=== PATIENT | male | born 1945 | race Hispanic/Latino ===

== ENCOUNTER 2023-05-19 17:48 | Inpatient (IN) | payer MEDICARE ==
[~2023-05-19] VITALS: Ht 185.4 cm; Wt 77.7 kg
[2023-05-19] MEDS ORDERED: ALBUTEROL/IPRATROPIUM 3 ML NEB NEB ONE ×2 (18:15→21:45)
[2023-05-19] MEDS ORDERED: SODIUM CHLORIDE 0.9% 1000ML 1,000 ML IV SCH (18:15)
[2023-05-19 18:43] LABS: BASOPHILS % 0.4 % (0.0-1.0); EOSINOPHILS % 0.2 % (0.0-6.0); HEMATOCRIT 33.9 % (38.2-49.6); HEMOGLOBIN 10.5 g/dL (14.0-18.0); LYMPHOCYTES # (AUTO) 0.8 (1.0-3.2); LYMPHOCYTES % 8.8 % (18.0-39.1); MEAN CORPUSCULAR HEMOGLOBIN 24.5 pg (28-32); MEAN CORPUSCULAR VOLUME 79.2 fL (81-99); MONOCYTES # (AUTO) 0.8 (0.2-0.8); MONOCYTES % 8.8 % (4.4-11.3); NEUTROPHILS # (AUTO) 6.9 (2.1-6.9); NEUTROPHILS % 81.3 % (38.7-80.0); PLATELET COUNT 166 x10e3/uL (140-360); RED BLOOD COUNT 4.28 x10e6/uL (4.3-5.7); RED CELL DISTRIBUTION WIDTH 21.1 % (11.7-14.4); WHITE BLOOD COUNT 8.52 x10e3/uL (4.8-10.8)
[2023-05-19 18:55] LABS: ALBUMIN 3.7 g/dL (3.5-5.0); ANION GAP 15.8 mmol/L (8-16); BILIRUBIN,TOTAL 1.2 mg/dL (0.2-1.2); CALCIUM 8.7 mg/dL (8.4-10.2); CREATININE, SERUM 1.48 mg/dL (0.72-1.25); POTASSIUM 3.8 mmol/L (3.5-5.1); TOTAL PROTEIN 7.5 g/dL (6.5-8.1)
[2023-05-19 19:01] LABS: TROPONIN I 0.043 ng/mL (0-0.300)
[2023-05-19 19:31] VITALS: PULSE 74; RESP 20; O2SAT 97
[2023-05-19] MEDS ORDERED: ONDANSETRON HCL INJ 2MG/ML 2ML 2 MG/ML VIAL IV PRN (21:45)
[2023-05-19] MEDS ORDERED: Morphine 4mg INJECTION 4 MG/ML INJ IV PRN (21:45)
[2023-05-20] VITALS (12 sets, daily range): BP systolic 94–105; BP diastolic 48–65; PULSE 71–86; RESP 16–20; TEMP 98–99.5; O2SAT 90–97
[2023-05-20] MEDS: ALBUTEROL/IPRATROPIUM 3 ML NEB NEB SCH ×6 (03:49→22:57)
[2023-05-20 05:56] LABS: BASOPHILS % 0.3 % (0.0-1.0); EOSINOPHILS % 0.3 % (0.0-6.0); HEMATOCRIT 30.6 % (38.2-49.6); HEMOGLOBIN 9.8 g/dL (14.0-18.0); LYMPHOCYTES # (AUTO) 0.7 (1.0-3.2); LYMPHOCYTES % 9.3 % (18.0-39.1); MEAN CORPUSCULAR HEMOGLOBIN 24.7 pg (28-32); MEAN CORPUSCULAR VOLUME 77.1 fL (81-99); MONOCYTES # (AUTO) 0.7 (0.2-0.8); MONOCYTES % 9.4 % (4.4-11.3); NEUTROPHILS # (AUTO) 5.9 (2.1-6.9); NEUTROPHILS % 80.6 % (38.7-80.0); PLATELET COUNT 173 x10e3/uL (140-360); RED BLOOD COUNT 3.97 x10e6/uL (4.3-5.7); RED CELL DISTRIBUTION WIDTH 20.7 % (11.7-14.4); WHITE BLOOD COUNT 7.33 x10e3/uL (4.8-10.8)
[2023-05-20 06:36] LABS: ALBUMIN 3.3 g/dL (3.5-5.0); ALBUMIN/GLOBULIN RATIO 0.9 (0.8-2.0); ANION GAP 14.3 mmol/L (8-16); BILIRUBIN,TOTAL 1.4 mg/dL (0.2-1.2); CALCIUM 8.2 mg/dL (8.4-10.2); CREATININE, SERUM 1.13 mg/dL (0.72-1.25); TOTAL PROTEIN 6.9 g/dL (6.5-8.1)
[2023-05-20] MEDS ORDERED: FUROSEMIDE40 MG PO (06:46)
[2023-05-20] MEDS ORDERED: ATORVASTATIN CA20 MG PO (06:46)
[2023-05-20] MEDS ORDERED: AMIODARONE HCL100 MG PO (06:46)
[2023-05-20] MEDS ORDERED: JARDIANCE10 MG PO (06:46)
[2023-05-20] MEDS ORDERED: ELIQUIS2.5 MG PO (06:46)
[2023-05-20 06:52] LABS: POTASSIUM 3.3 mmol/L (3.5-5.1)
[2023-05-20] MEDS ORDERED: SPIRONOLACTONE25 MG PO (06:55)
[2023-05-20] MEDS ORDERED: LEVOTHYROXINE88 MCG PO (06:55)
[2023-05-20] MEDS ORDERED: METFORMIN HCL850 MG PO (06:55)
[2023-05-20] MEDS ORDERED: FLOMAX0.4 MG PO (06:55)
[2023-05-20] MEDS ORDERED: D3-5000125 MCG PO (06:55)
[2023-05-20] MEDS ORDERED: METOLAZONE5 MG PO (06:55)
[2023-05-20] MEDS ORDERED: CLOPIDOGREL75 MG PO (06:55)
[2023-05-20 06:59] LABS: TROPONIN I 0.035 ng/mL (0-0.300)
[2023-05-20] MEDS ORDERED: GUAIFENESIN/DEXTROMETHORPHAN LIQD 5 ML UDC NG PRN (09:30)
[2023-05-20 10:04] LABS: CHOL/HDL RATIO 3.2 (3.9-4.7)
[2023-05-20] MEDS ORDERED: POTASSIUM CHLORIDE 20 MEQ TAB CR PO ONE ×3 (12:15→22:15)
[2023-05-20] MEDS ORDERED: FUROSEMIDE INJ 10 MG/ML 4 ML VIAL IV ONE (12:15)
[2023-05-20] MEDS: METHYLPREDNISOLONE SOD SUCC 40 MG/ML VIAL 1ML IV SCH ×2 (14:27→21:52)
[2023-05-20] MEDS ORDERED: BENZONATATE 100 MG CAP PO SCH (15:00)
[2023-05-20 15:10] LABS: TROPONIN I 0.037 ng/mL (0-0.300)
[2023-05-20] MEDS: SACUBITRIL/VALSARTAN 24MG/26MG 1 EA TAB PO SCH (16:56)
[2023-05-20] MEDS: GUAIFENESIN/CODEINE 5 ML LIQD PO PRN ×2 (17:28→21:53)
[2023-05-20] MEDS: APIXAB 2.5 MG TABLET PO SCH (17:29)
[2023-05-20] MEDS: ATORVASTATIN 20 MG TAB PO SCH (21:52)
[2023-05-21] VITALS (37 sets, daily range): BP systolic 79–129; BP diastolic 53–102; PULSE 60–101; RESP 20–40; TEMP 97.1–98.4; O2SAT 80–100
[2023-05-21] MEDS: ALBUTEROL/IPRATROPIUM 3 ML NEB NEB SCH ×6 (03:00→23:51)
[2023-05-21] MEDS: LEVOTHYROXINE SODIUM 88 MCG TAB PO SCH (05:06)
[2023-05-21] MEDS: GUAIFENESIN/CODEINE 5 ML LIQD PO PRN ×2 (05:06→19:59)
[2023-05-21 06:28] LABS: BASOPHILS % 0.1 % (0.0-1.0); HEMATOCRIT 32.1 % (38.2-49.6); HEMOGLOBIN 10.4 g/dL (14.0-18.0); LYMPHOCYTES # (AUTO) 0.4 (1.0-3.2); LYMPHOCYTES % 3.7 % (18.0-39.1); MEAN CORPUSCULAR HEMOGLOBIN 25.7 pg (28-32); MEAN CORPUSCULAR HGB CONC 32.4 g/dL (31-35); MEAN CORPUSCULAR VOLUME 79.3 fL (81-99); MONOCYTES # (AUTO) 0.3 (0.2-0.8); MONOCYTES % 3.2 % (4.4-11.3); NEUTROPHILS # (AUTO) 9.4 (2.1-6.9); NEUTROPHILS % 92.6 % (38.7-80.0); RED BLOOD COUNT 4.05 x10e6/uL (4.3-5.7); RED CELL DISTRIBUTION WIDTH 21.7 % (11.7-14.4); WHITE BLOOD COUNT 10.11 x10e3/uL (4.8-10.8)
[2023-05-21 06:42] LABS: PLATELET COUNT 170 x10e3/uL (140-360)
[2023-05-21 06:55] LABS: ANION GAP 19.7 mmol/L (8-16); CALCIUM 8.7 mg/dL (8.4-10.2); CREATININE, SERUM 1.31 mg/dL (0.72-1.25); POTASSIUM 4.7 mmol/L (3.5-5.1)
[2023-05-21] MEDS ORDERED: FUROSEMIDE INJ 10 MG/ML 4 ML VIAL IV STA (07:43)
[2023-05-21] MEDS ORDERED: DEXTROSE 50% SYRINGE 50 ML IV PRN (07:45)
[2023-05-21 08:55] LABS: INFLUENZAE A&B ANTIGEN (RAPID) NEGATIVE (NEGATIVE); RESPIRATORY SYNC. VIRUS NEGATIVE (NEGATIVE)
[2023-05-21] MEDS ORDERED: EMPAGLIFLOZIN 10 MG TABLET PO SCH (09:00)
[2023-05-21] MEDS ORDERED: FUROSEMIDE 40 MG TAB PO SCH (09:00)
[2023-05-21] MEDS ORDERED: METFORMIN HCL 850 MG TAB PO SCH (09:00)
[2023-05-21] MEDS: APIXAB 2.5 MG TABLET PO SCH ×2 (10:07→18:11)
[2023-05-21] MEDS: CLOPIDOGREL BISULFATE 75 MG TAB PO SCH (10:08)
[2023-05-21] MEDS: AMIODARONE HCL 200 MG TAB PO SCH (10:09)
[2023-05-21] MEDS: SACUBITRIL/VALSARTAN 24MG/26MG 1 EA TAB PO SCH ×2 (10:09→17:00)
[2023-05-21] MEDS: METOLAZONE 5 MG TAB PO SCH (10:10)
[2023-05-21] MEDS: TAMSULOSIN HCL 0.4 MG CAP PO SCH ×2 (10:15→10:17)
[2023-05-21] MEDS: SPIRONOLACTONE 25 MG TAB PO SCH (10:16)
[2023-05-21] MEDS: INSULIN REGULAR, HUMAN 100 UNIT/1 ML SQ SCH ×3 (10:20→20:11)
[2023-05-21] MEDS ORDERED: METHYLPREDNISOLONE SOD SUCC 40 MG/ML VIAL 1ML IV SCH (11:00)
[2023-05-21] MEDS ORDERED: FUROSEMIDE INJ 10 MG/ML 2 ML VIAL IV STA (12:29)
[2023-05-21] MEDS ORDERED: SODIUM CHLORIDE 0.9% 1000ML 1,000 ML IV STA (13:04)
[2023-05-21 13:07] LABS: ABG HCO3 17 mmol/L (22-26); ABG PCO2 27 mmHg (35-45); ABG TCO2 17
[2023-05-21 13:08] LABS: ABG PO2 45 mmHg (80-105)
[2023-05-21] MEDS ORDERED: Vancomycin IV 1 GM in SODIUM CHLORIDE 0.9% 250ML 250 ML IV ONE (13:30)
[2023-05-21] MEDS ORDERED: SODIUM CHLORIDE 0.9% 1000ML 1,000 ML IV ONE (14:15)
[2023-05-21] MEDS: ATORVASTATIN 20 MG TAB PO SCH (20:00)
[2023-05-22] VITALS (43 sets, daily range): BP systolic 49–100; BP diastolic 29–67; PULSE 60–74; RESP 9–29; TEMP 97.4–98.2; O2SAT 95–100
[2023-05-22] MEDS: GUAIFENESIN/CODEINE 5 ML LIQD PO PRN (00:43)
[2023-05-22] MEDS: ALBUTEROL/IPRATROPIUM 3 ML NEB NEB SCH ×6 (03:00→23:00)
[2023-05-22] MEDS: LEVOTHYROXINE SODIUM 88 MCG TAB PO SCH ×2 (05:33→05:45)
[2023-05-22 06:18] LABS: HEMATOCRIT 28.9 % (38.2-49.6); HEMOGLOBIN 8.9 g/dL (14.0-18.0); LYMPHOCYTES # (AUTO) 0.5 (1.0-3.2); LYMPHOCYTES % 5.9 % (18.0-39.1); MEAN CORPUSCULAR HEMOGLOBIN 24.8 pg (28-32); MEAN CORPUSCULAR HGB CONC 30.8 g/dL (31-35); MEAN CORPUSCULAR VOLUME 80.5 fL (81-99); MONOCYTES # (AUTO) 0.6 (0.2-0.8); MONOCYTES % 7.1 % (4.4-11.3); NEUTROPHILS # (AUTO) 6.8 (2.1-6.9); NEUTROPHILS % 86.6 % (38.7-80.0); PLATELET COUNT 165 x10e3/uL (140-360); RED BLOOD COUNT 3.59 x10e6/uL (4.3-5.7); RED CELL DISTRIBUTION WIDTH 21.8 % (11.7-14.4)
[2023-05-22 06:43] LABS: BILIRUBIN,URINE NEGATIVE (NEGATIVE); CLARITY,URINE CLEAR (CLEAR); COLOR,URINE YELLOW (YELLOW); GLUCOSE, URINE 500 (NEGATIVE); KETONES,URINE TRACE (NEGATIVE); LEUKOCYTE ESTERASE ,URINE NEGATIVE (NEGATIVE); NITRITE,URINE NEGATIVE (NEGATIVE); PH,URINE 5.5 (5 - 7); PROTEIN,URINE DIPSTICK NEGATIVE (NEGATIVE); URINE UROBILINOGEN 0.2 mg/dL (0.2 - 1)
[2023-05-22 06:49] LABS: ALBUMIN 2.6 g/dL (3.5-5.0); ALBUMIN/GLOBULIN RATIO 0.7 (0.8-2.0); ANION GAP 13.1 mmol/L (8-16); BILIRUBIN,TOTAL 1.1 mg/dL (0.2-1.2); CALCIUM 8.3 mg/dL (8.4-10.2); CREATININE, SERUM 1.3 mg/dL (0.72-1.25); POTASSIUM 4.1 mmol/L (3.5-5.1); TOTAL PROTEIN 6.2 g/dL (6.5-8.1)
[2023-05-22 06:52] LABS: BACTERIA,URINE MODERATE /HPF; EPITHELIAL CELLS,URINE FEW /LPF; RBC,URINE 0-5 /HPF (0-5); WBC,URINE (MAN) 0-5 /HPF (0-5)
[2023-05-22] MEDS: INSULIN REGULAR, HUMAN 100 UNIT/1 ML SQ SCH ×4 (07:13→20:36)
[2023-05-22] MEDS: TAMSULOSIN HCL 0.4 MG CAP PO SCH (08:07)
[2023-05-22] MEDS: CLOPIDOGREL BISULFATE 75 MG TAB PO SCH (08:07)
[2023-05-22] MEDS: AMIODARONE HCL 200 MG TAB PO SCH (08:07)
[2023-05-22] MEDS: SPIRONOLACTONE 25 MG TAB PO SCH (08:07)
[2023-05-22] MEDS: SACUBITRIL/VALSARTAN 24MG/26MG 1 EA TAB PO SCH (08:08)
[2023-05-22] MEDS ORDERED: FUROSEMIDE INJ 10 MG/ML 2 ML VIAL IV ONE (08:15)
[2023-05-22] MEDS: APIXAB 2.5 MG TABLET PO SCH ×2 (08:19→16:32)
[2023-05-22] MEDS: METOLAZONE 5 MG TAB PO SCH (10:34)
[2023-05-22] MEDS: MIDODRINE HCL 5 MG TABLET PO SCH ×2 (11:18→16:32)
[2023-05-22] MEDS ORDERED: ALBUMIN 25% 25GM 100ML 0.25 GM/ML BTL IV ONE (11:30)
[2023-05-22] MEDS ORDERED: ALBUMIN 25% 12.5GM 50ML 50 ML IV SCH (13:00)
[2023-05-22 13:13] LABS: CREATININE,URINE RANDOM 67.43 mg/dL (63-166); TOTAL PROTEIN, URINE 18.2 mg/dL (1-14)
[2023-05-22] MEDS: FUROSEMIDE INJ 10 MG/ML 4 ML VIAL IV SCH ×2 (14:24→22:00)
[2023-05-22 16:10] LABS: B-TYPE NATRIURETIC PEPTIDE2 392.6 pg/mL (0-100)
[2023-05-22] MEDS: ALBUMIN 25% 12.5GM 50ML 50 ML IV SCH ×2 (16:33→23:54)
[2023-05-22] MEDS ORDERED: ALBUMIN 25% 12.5GM 0.25 GM/ML BTL IV SCH (18:00)
[2023-05-22] MEDS: ATORVASTATIN 20 MG TAB PO SCH (20:39)
[2023-05-23] VITALS (52 sets, daily range): BP systolic 85–123; BP diastolic 50–70; PULSE 62–77; RESP 13–32; TEMP 97.9–98.3; O2SAT 91–100
[2023-05-23] MEDS: GUAIFENESIN/CODEINE 5 ML LIQD PO PRN ×2 (02:12→23:52)
[2023-05-23] MEDS: ALBUTEROL/IPRATROPIUM 3 ML NEB NEB SCH ×6 (03:00→23:08)
[2023-05-23] MEDS: LEVOTHYROXINE SODIUM 88 MCG TAB PO SCH (05:50)
[2023-05-23] MEDS: ALBUMIN 25% 12.5GM 50ML 50 ML IV SCH ×3 (05:50→16:55)
[2023-05-23] MEDS: FUROSEMIDE INJ 10 MG/ML 4 ML VIAL IV SCH ×3 (06:00→22:00)
[2023-05-23 06:29] LABS: EOSINOPHILS % 0.3 % (0.0-6.0); HEMATOCRIT 27.7 % (38.2-49.6); HEMOGLOBIN 8.6 g/dL (14.0-18.0); LYMPHOCYTES # (AUTO) 0.7 (1.0-3.2); LYMPHOCYTES % 9.1 % (18.0-39.1); MEAN CORPUSCULAR HEMOGLOBIN 24.4 pg (28-32); MEAN CORPUSCULAR VOLUME 78.5 fL (81-99); MONOCYTES # (AUTO) 0.7 (0.2-0.8); MONOCYTES % 9.6 % (4.4-11.3); NEUTROPHILS # (AUTO) 5.7 (2.1-6.9); NEUTROPHILS % 80.4 % (38.7-80.0); PLATELET COUNT 176 x10e3/uL (140-360); RED BLOOD COUNT 3.53 x10e6/uL (4.3-5.7); RED CELL DISTRIBUTION WIDTH 21.4 % (11.7-14.4); WHITE BLOOD COUNT 7.11 x10e3/uL (4.8-10.8)
[2023-05-23 06:53] LABS: MAGNESIUM 1.8 MG/DL (1.3-2.1); PHOSPHORUS 3.5 MG/DL (2.3-4.7)
[2023-05-23 06:57] LABS: ALBUMIN 3.1 g/dL (3.5-5.0); ANION GAP 14.4 mmol/L (8-16); BILIRUBIN,TOTAL 1.1 mg/dL (0.2-1.2); CALCIUM 8.5 mg/dL (8.4-10.2); CREATININE, SERUM 1.43 mg/dL (0.72-1.25); TOTAL PROTEIN 6.3 g/dL (6.5-8.1)
[2023-05-23 06:58] LABS: POTASSIUM 3.4 mmol/L (3.5-5.1)
[2023-05-23] MEDS: METOLAZONE 5 MG TAB PO SCH (08:07)
[2023-05-23] MEDS: APIXAB 2.5 MG TABLET PO SCH ×2 (08:07→16:54)
[2023-05-23] MEDS: MIDODRINE HCL 5 MG TABLET PO SCH ×3 (08:08→16:52)
[2023-05-23] MEDS: AMIODARONE HCL 200 MG TAB PO SCH (08:09)
[2023-05-23] MEDS: CLOPIDOGREL BISULFATE 75 MG TAB PO SCH (08:15)
[2023-05-23] MEDS: INSULIN REGULAR, HUMAN 100 UNIT/1 ML SQ SCH ×4 (08:16→21:19)
[2023-05-23] MEDS: ATORVASTATIN 20 MG TAB PO SCH (21:15)
[2023-05-24] VITALS (32 sets, daily range): BP systolic 80–110; BP diastolic 15–71; PULSE 63–76; RESP 12–34; TEMP 97.5–98.3; O2SAT 84–100
[2023-05-24] MEDS: ALBUMIN 25% 12.5GM 50ML 50 ML IV SCH (00:24)
[2023-05-24] MEDS: ALBUTEROL/IPRATROPIUM 3 ML NEB NEB SCH ×6 (03:02→23:22)
[2023-05-24] MEDS: FUROSEMIDE INJ 10 MG/ML 4 ML VIAL IV SCH ×2 (06:00→13:07)
[2023-05-24] MEDS: LEVOTHYROXINE SODIUM 88 MCG TAB PO SCH (06:08)
[2023-05-24 06:29] LABS: BASOPHILS % 0.1 % (0.0-1.0); EOSINOPHILS # (AUTO) 0.1 (0.0-0.4); EOSINOPHILS % 1.3 % (0.0-6.0); HEMATOCRIT 28.5 % (38.2-49.6); LYMPHOCYTES # (AUTO) 0.6 (1.0-3.2); LYMPHOCYTES % 9.2 % (18.0-39.1); MEAN CORPUSCULAR HGB CONC 31.6 g/dL (31-35); MONOCYTES # (AUTO) 0.7 (0.2-0.8); MONOCYTES % 9.9 % (4.4-11.3); NEUTROPHILS # (AUTO) 5.4 (2.1-6.9); NEUTROPHILS % 78.9 % (38.7-80.0); PLATELET COUNT 173 x10e3/uL (140-360); RED BLOOD COUNT 3.75 x10e6/uL (4.3-5.7); RED CELL DISTRIBUTION WIDTH 21.5 % (11.7-14.4); WHITE BLOOD COUNT 6.85 x10e3/uL (4.8-10.8)
[2023-05-24 07:03] LABS: ALBUMIN 3.4 g/dL (3.5-5.0); ALBUMIN/GLOBULIN RATIO 1.1 (0.8-2.0); ANION GAP 14.5 mmol/L (8-16); BILIRUBIN,TOTAL 1.6 mg/dL (0.2-1.2); CREATININE, SERUM 1.26 mg/dL (0.72-1.25); POTASSIUM 3.5 mmol/L (3.5-5.1); TOTAL PROTEIN 6.5 g/dL (6.5-8.1)
[2023-05-24] MEDS: INSULIN REGULAR, HUMAN 100 UNIT/1 ML SQ SCH ×4 (07:30→21:00)
[2023-05-24] MEDS: GUAIFENESIN/CODEINE 5 ML LIQD PO PRN ×2 (07:58→18:32)
[2023-05-24] MEDS: MIDODRINE HCL 5 MG TABLET PO SCH ×3 (08:04→16:37)
[2023-05-24] MEDS: CLOPIDOGREL BISULFATE 75 MG TAB PO SCH (09:45)
[2023-05-24] MEDS: APIXAB 2.5 MG TABLET PO SCH ×2 (09:45→16:37)
[2023-05-24] MEDS: AMIODARONE HCL 200 MG TAB PO SCH (09:45)
[2023-05-24] MEDS: POTASSIUM CHLORIDE 20MEQ/100ML 100 ML IV SCH ×2 (09:49→12:43)
[2023-05-24 11:33] LABS: ANISOCYTOSIS MODERATE; ELLIPTOCYTE, RBC SLIGHT; HYPOCHROMASIA MODERATE; MICROCYTOSIS MODERATE; OVALOCYTES FEW; PLATELET ESTIMATE ADEQUATE; PLATELET MORPHOLOGY COMMENT NORMAL; RBC MORPHOLOGY COMMENT ABNORMAL
[2023-05-24] MEDS: METOPROLOL TARTRATE 25 MG TAB PO SCH (21:00)
[2023-05-24] MEDS: ATORVASTATIN 20 MG TAB PO SCH (22:19)
[2023-05-25] VITALS (42 sets, daily range): BP systolic 76–101; BP diastolic 50–69; PULSE 60–87; RESP 12–32; TEMP 97.7–98.8; O2SAT 75–100
[2023-05-25] MEDS: ALBUTEROL/IPRATROPIUM 3 ML NEB NEB SCH ×6 (03:20→23:19)
[2023-05-25 05:19] LABS: MYCOPLASMA PNEUMO IGG 381 U/mL (0-99)
[2023-05-25] MEDS: LEVOTHYROXINE SODIUM 88 MCG TAB PO SCH (05:43)
[2023-05-25 06:41] LABS: BASOPHILS % 0.3 % (0.0-1.0); EOSINOPHILS # (AUTO) 0.1 (0.0-0.4); EOSINOPHILS % 2.2 % (0.0-6.0); HEMATOCRIT 30.7 % (38.2-49.6); HEMOGLOBIN 9.9 g/dL (14.0-18.0); LYMPHOCYTES # (AUTO) 0.8 (1.0-3.2); LYMPHOCYTES % 12.9 % (18.0-39.1); MEAN CORPUSCULAR HEMOGLOBIN 24.7 pg (28-32); MEAN CORPUSCULAR HGB CONC 32.2 g/dL (31-35); MEAN CORPUSCULAR VOLUME 76.6 fL (81-99); MONOCYTES # (AUTO) 0.7 (0.2-0.8); MONOCYTES % 11.1 % (4.4-11.3); NEUTROPHILS # (AUTO) 4.7 (2.1-6.9); NEUTROPHILS % 72.9 % (38.7-80.0); PLATELET COUNT 208 x10e3/uL (140-360); RED BLOOD COUNT 4.01 x10e6/uL (4.3-5.7); RED CELL DISTRIBUTION WIDTH 21.9 % (11.7-14.4)
[2023-05-25 07:06] LABS: ALBUMIN 3.2 g/dL (3.5-5.0); ALBUMIN/GLOBULIN RATIO 0.9 (0.8-2.0); ANION GAP 13.4 mmol/L (8-16); BILIRUBIN,TOTAL 1.7 mg/dL (0.2-1.2); CREATININE, SERUM 1.19 mg/dL (0.72-1.25); TOTAL PROTEIN 6.6 g/dL (6.5-8.1)
[2023-05-25 07:10] LABS: POTASSIUM 3.4 mmol/L (3.5-5.1)
[2023-05-25] MEDS: INSULIN REGULAR, HUMAN 100 UNIT/1 ML SQ SCH ×4 (07:30→20:52)
[2023-05-25] MEDS: APIXAB 2.5 MG TABLET PO SCH ×2 (08:15→16:59)
[2023-05-25] MEDS: AMIODARONE HCL 200 MG TAB PO SCH (08:15)
[2023-05-25] MEDS: MIDODRINE HCL 5 MG TABLET PO SCH ×3 (08:15→16:59)
[2023-05-25] MEDS: METOPROLOL TARTRATE 25 MG TAB PO SCH ×2 (08:15→20:42)
[2023-05-25] MEDS: CLOPIDOGREL BISULFATE 75 MG TAB PO SCH (08:15)
[2023-05-25] MEDS ORDERED: FUROSEMIDE INJ 10 MG/ML 4 ML VIAL IV SCH (09:00)
[2023-05-25] MEDS: POTASSIUM CHLORIDE 20 MEQ TAB CR PO SCH (09:41)
[2023-05-25] MEDS: FUROSEMIDE INJ 10 MG/ML 4 ML VIAL IV SCH (09:42)
[2023-05-25] MEDS: GUAIFENESIN/CODEINE 5 ML LIQD PO PRN (12:24)
[2023-05-25] MEDS: ATORVASTATIN 20 MG TAB PO SCH (20:41)
[2023-05-26] VITALS (63 sets, daily range): BP systolic 77–127; BP diastolic 48–112; PULSE 52–102; RESP 11–28; TEMP 97.7–98.2; O2SAT 79–100
[2023-05-26] MEDS: ALBUTEROL/IPRATROPIUM 3 ML NEB NEB SCH ×5 (03:22→19:40)
[2023-05-26] MEDS: LEVOTHYROXINE SODIUM 88 MCG TAB PO SCH (05:07)
[2023-05-26 06:51] LABS: BASOPHILS % 0.6 % (0.0-1.0); EOSINOPHILS # (AUTO) 0.1 (0.0-0.4); EOSINOPHILS % 1.6 % (0.0-6.0); HEMATOCRIT 32.2 % (38.2-49.6); LYMPHOCYTES # (AUTO) 0.8 (1.0-3.2); LYMPHOCYTES % 11.9 % (18.0-39.1); MEAN CORPUSCULAR HEMOGLOBIN 24.8 pg (28-32); MEAN CORPUSCULAR HGB CONC 31.1 g/dL (31-35); MEAN CORPUSCULAR VOLUME 79.9 fL (81-99); MONOCYTES # (AUTO) 0.6 (0.2-0.8); MONOCYTES % 9.6 % (4.4-11.3); NEUTROPHILS # (AUTO) 4.9 (2.1-6.9); NEUTROPHILS % 75.8 % (38.7-80.0); PLATELET COUNT 206 x10e3/uL (140-360); RED BLOOD COUNT 4.03 x10e6/uL (4.3-5.7); RED CELL DISTRIBUTION WIDTH 22.1 % (11.7-14.4); WHITE BLOOD COUNT 6.45 x10e3/uL (4.8-10.8)
[2023-05-26 07:32] LABS: ALBUMIN 3.2 g/dL (3.5-5.0); ALBUMIN/GLOBULIN RATIO 0.9 (0.8-2.0); ANION GAP 14.1 mmol/L (8-16); BILIRUBIN,TOTAL 1.4 mg/dL (0.2-1.2); CALCIUM 9.2 mg/dL (8.4-10.2); CREATININE, SERUM 1.2 mg/dL (0.72-1.25); MAGNESIUM 1.7 MG/DL (1.3-2.1); PHOSPHORUS 3.1 MG/DL (2.3-4.7); TOTAL PROTEIN 6.8 g/dL (6.5-8.1)
[2023-05-26 07:37] LABS: POTASSIUM 3.1 mmol/L (3.5-5.1)
[2023-05-26] MEDS: METOPROLOL TARTRATE 25 MG TAB PO SCH ×2 (09:00→21:00)
[2023-05-26] MEDS: MIDODRINE HCL 5 MG TABLET PO SCH ×3 (09:01→17:16)
[2023-05-26] MEDS: POTASSIUM CHLORIDE 20 MEQ TAB CR PO SCH (09:01)
[2023-05-26] MEDS: CLOPIDOGREL BISULFATE 75 MG TAB PO SCH (09:01)
[2023-05-26] MEDS: AMIODARONE HCL 200 MG TAB PO SCH (09:02)
[2023-05-26] MEDS: APIXAB 2.5 MG TABLET PO SCH ×2 (09:02→17:16)
[2023-05-26] MEDS: FUROSEMIDE INJ 10 MG/ML 4 ML VIAL IV SCH (09:02)
[2023-05-26] MEDS: INSULIN REGULAR, HUMAN 100 UNIT/1 ML SQ SCH ×4 (09:04→20:40)
[2023-05-26] MEDS ORDERED: SODIUM CHLORIDE 0.9% 1000ML 1,000 ML IV SCH (09:30)
[2023-05-26] MEDS ORDERED: POTASSIUM CHLORIDE 20 MEQ TAB CR PO ONE (10:15)
[2023-05-26] MEDS: ATORVASTATIN 20 MG TAB PO SCH (19:41)
[2023-05-27] VITALS (39 sets, daily range): BP systolic 84–114; BP diastolic 49–81; PULSE 62–136; RESP 13–27; TEMP 97.8–98.1; O2SAT 94–100
[2023-05-27] MEDS: ALBUTEROL/IPRATROPIUM 3 ML NEB NEB SCH ×7 (00:13→23:20)
[2023-05-27] MEDS: LEVOTHYROXINE SODIUM 88 MCG TAB PO SCH (05:38)
[2023-05-27 06:18] LABS: BASOPHILS # (AUTO) 0.1 (0.0-0.1); BASOPHILS % 0.9 % (0.0-1.0); EOSINOPHILS # (AUTO) 0.1 (0.0-0.4); EOSINOPHILS % 1.8 % (0.0-6.0); HEMATOCRIT 33.6 % (38.2-49.6); HEMOGLOBIN 10.4 g/dL (14.0-18.0); LYMPHOCYTES # (AUTO) 0.9 (1.0-3.2); LYMPHOCYTES % 15.1 % (18.0-39.1); MEAN CORPUSCULAR VOLUME 77.6 fL (81-99); MONOCYTES # (AUTO) 0.5 (0.2-0.8); MONOCYTES % 8.2 % (4.4-11.3); NEUTROPHILS # (AUTO) 4.1 (2.1-6.9); NEUTROPHILS % 73.5 % (38.7-80.0); PLATELET COUNT 238 x10e3/uL (140-360); RED BLOOD COUNT 4.33 x10e6/uL (4.3-5.7); RED CELL DISTRIBUTION WIDTH 21.7 % (11.7-14.4); WHITE BLOOD COUNT 5.62 x10e3/uL (4.8-10.8)
[2023-05-27 06:37] LABS: ALBUMIN 3.2 g/dL (3.5-5.0); ALBUMIN/GLOBULIN RATIO 0.9 (0.8-2.0); ANION GAP 13.4 mmol/L (8-16); BILIRUBIN,TOTAL 1.2 mg/dL (0.2-1.2); CREATININE, SERUM 1.09 mg/dL (0.72-1.25); TOTAL PROTEIN 6.9 g/dL (6.5-8.1)
[2023-05-27 06:38] LABS: POTASSIUM 3.4 mmol/L (3.5-5.1)
[2023-05-27] MEDS: INSULIN REGULAR, HUMAN 100 UNIT/1 ML SQ SCH ×4 (07:30→20:39)
[2023-05-27] MEDS: METOPROLOL TARTRATE 25 MG TAB PO SCH (09:00)
[2023-05-27] MEDS: POTASSIUM CHLORIDE 20 MEQ TAB CR PO SCH (09:08)
[2023-05-27] MEDS: MIDODRINE HCL 5 MG TABLET PO SCH ×4 (09:08→16:22)
[2023-05-27] MEDS: CLOPIDOGREL BISULFATE 75 MG TAB PO SCH (09:08)
[2023-05-27] MEDS: AMIODARONE HCL 200 MG TAB PO SCH (09:09)
[2023-05-27] MEDS: APIXAB 2.5 MG TABLET PO SCH ×2 (09:09→16:21)
[2023-05-27] MEDS: FUROSEMIDE 20 MG TAB PO SCH (09:09)
[2023-05-27] MEDS: ATORVASTATIN 20 MG TAB PO SCH (20:10)
[2023-05-28] VITALS (13 sets, daily range): BP systolic 90–113; BP diastolic 60–72; PULSE 60–82; RESP 17–21; TEMP 97.6–98.1; O2SAT 92–100
[2023-05-28] MEDS: ALBUTEROL/IPRATROPIUM 3 ML NEB NEB SCH ×6 (03:05→23:06)
[2023-05-28] MEDS: LEVOTHYROXINE SODIUM 88 MCG TAB PO SCH (06:09)
[2023-05-28] MEDS ORDERED: ACETAMINOPHEN 325 MG TAB PO PRN (09:15)
[2023-05-28] MEDS: POTASSIUM CHLORIDE 20 MEQ TAB CR PO SCH (09:37)
[2023-05-28] MEDS: APIXAB 2.5 MG TABLET PO SCH ×2 (09:37→16:50)
[2023-05-28] MEDS: CLOPIDOGREL BISULFATE 75 MG TAB PO SCH (09:37)
[2023-05-28] MEDS: MIDODRINE HCL 5 MG TABLET PO SCH ×3 (09:38→16:50)
[2023-05-28] MEDS: AMIODARONE HCL 200 MG TAB PO SCH (09:38)
[2023-05-28] MEDS: FUROSEMIDE 20 MG TAB PO SCH (09:38)
[2023-05-28] MEDS: INSULIN REGULAR, HUMAN 100 UNIT/1 ML SQ SCH ×4 (09:45→21:41)
[2023-05-28] MEDS: ATORVASTATIN 20 MG TAB PO SCH (21:39)
[2023-05-29] VITALS (7 sets, daily range): BP systolic 92–93; BP diastolic 55–63; PULSE 67–93; RESP 18–20; TEMP 98; O2SAT 92–99
[2023-05-29] MEDS: ALBUTEROL/IPRATROPIUM 3 ML NEB NEB SCH ×3 (03:13→11:00)
[2023-05-29] MEDS: LEVOTHYROXINE SODIUM 88 MCG TAB PO SCH (05:51)
[2023-05-29] MEDS: INSULIN REGULAR, HUMAN 100 UNIT/1 ML SQ SCH ×2 (07:30→11:30)
[2023-05-29] MEDS: APIXAB 2.5 MG TABLET PO SCH (09:25)
[2023-05-29] MEDS: MIDODRINE HCL 5 MG TABLET PO SCH ×2 (09:25→12:10)
[2023-05-29] MEDS: AMIODARONE HCL 200 MG TAB PO SCH (09:26)
[2023-05-29] MEDS: FUROSEMIDE 20 MG TAB PO SCH (09:26)
[2023-05-29] MEDS: CLOPIDOGREL BISULFATE 75 MG TAB PO SCH (09:26)
[2023-05-29] MEDS: POTASSIUM CHLORIDE 20 MEQ TAB CR PO SCH (09:26)
[2023-05-29] MEDS ORDERED: MIDODRINE HCL5 MG PO (10:39)
[2023-05-29] MEDS ORDERED: Sacubitril/Valsartan 24MG/26MG PO (10:39)
[2023-05-29] MEDS ORDERED: FUROSEMIDE20 MG PO (10:39)
[2023-05-29] MEDS ORDERED: POTASSIUM CHLO20 ME1 PO (10:39)
[2023-05-29] MEDS ORDERED: ONDANSETRON HCL 4 MG ORAL DISINTEGRATING TAB PO PRN (13:00)
[2023-06-06 08:10] LABS: RMSF IGG <1:64
== END 2023-05-29 13:15 | disposition home or self-care (01) | DRG 291 ==
LOC: ER 18:01 → ERHOLD 21:33 → MED/SURG 05-20 01:03 → OBSVTOIN 05-20 15:00 → ICU 05-21 14:26 → MED/SURG 05-27 21:40
PROVIDERS: ADMIT Internal Medicine; ATTEND Internal Medicine
PROC: 02HV33Z Insertion of Infusion Device into Superior Vena Cava, Percutaneous Approach (ICD-10-PCS; principal; 2023-05-21)
PROC: B548ZZA Ultrasonography of Superior Vena Cava, Guidance (ICD-10-PCS; 2023-05-21)
PROC: 4A033R1 Measurement of Arterial Saturation, Peripheral, Percutaneous Approach (ICD-10-PCS; 2023-05-21)
PROC: 3E0F7SF Introduction of Other Gas into Respiratory Tract, Via Natural or Artificial Opening (ICD-10-PCS; 2023-05-22)
DX: I13.0 Hypertensive heart and chronic kidney disease with heart failure and stage 1 through stage 4 chronic kidney disease, or unspecified chronic kidney disease (principal); I50.23 Acute on chronic systolic (congestive) heart failure; J96.21 Acute and chronic respiratory failure with hypoxia; R57.0 Cardiogenic shock; J69.0 Pneumonitis due to inhalation of food and vomit; J44.1 Chronic obstructive pulmonary disease with (acute) exacerbation; N17.9 Acute kidney failure, unspecified; E87.1 Hypo-osmolality and hyponatremia; E11.9 Type 2 diabetes mellitus without complications; E03.9 Hypothyroidism, unspecified; E78.5 Hyperlipidemia, unspecified; I48.0 Paroxysmal atrial fibrillation; N40.0 Benign prostatic hyperplasia without lower urinary tract symptoms; N18.30 Chronic kidney disease, stage 3 unspecified; R39.2 Extrarenal uremia; E87.6 Hypokalemia; R53.81 Other malaise; I42.9 Cardiomyopathy, unspecified; Z89.611 Acquired absence of right leg above knee; Z87.891 Personal history of nicotine dependence; Z95.810 Presence of automatic (implantable) cardiac defibrillator; Z20.822 Contact with and (suspected) exposure to COVID-19
CPT/HCPCS: 36415; 36569; 36600; 71045; 76700; 76770; 80048; 80053; 80061; 81001; 82550; 82570; 82805; 82948; 83036; 83605; 83690; 83735; 83880; 83930; 83935; 84100; 84134; 84156; 84300; 84484; 85025; 86738; 86757; 87040; 87086; 87400; 87420; 87449; 93005; 93306; 94640; 94799; 96372; 99252; 99284; G0378; J0696; J1940; J2405; J2543; J2920; J3480; J7030; J7050; P9047; U0002